=== PATIENT | female | born 1990 | race Two or more races ===

== ENCOUNTER 2020-06-08 14:34 | Emergency (ER) | payer OTHER ==
[~2020-06-08] VITALS: Ht 149.9 cm; Wt 59.0 kg
[2020-06-08] MEDS ORDERED: [UNRECOGNIZED DRUG - OTHER] (15:21)
[2020-06-08] MEDS ORDERED: CLONAZEPAM0.5 M1 (15:21)
== END 2020-06-08 15:54 | disposition home or self-care (01) ==
LOC: ER 14:34
DX: S51.851A Open bite of right forearm, initial encounter (principal); W54.0XXA Bitten by dog, initial encounter; Y93.89 Activity, other specified; Y92.89 Other specified places as the place of occurrence of the external cause; Y99.8 Other external cause status

== ENCOUNTER 2024-08-10 18:36 | Emergency (ER) | payer OTHER ==
[~2024-08-10] VITALS: Ht 149.9 cm; Wt 61.7 kg
[~2024-08-10 18:36] MED LIST: CLONAZEPAM0.5 M1; [UNRECOGNIZED DRUG - OTHER]
[2024-08-10] MEDS ORDERED: TRAZODONE HCL100 MG PO (19:02)
[2024-08-10] MEDS ORDERED: 0.9 % SODIUM CHLORIDE 1,000 ML IV STA (19:38)
[2024-08-10] MEDS ORDERED: ONDANSETRON HCL 2 MG/ML VIAL IV STA (19:39)
[2024-08-10 20:38] LABS: HEMATOCRIT 43.7 % (36.0-45.00); HEMOGLOBIN 14.9 g/dL (12.0-15.00); MEAN CELL VOLUME 86.3 fL (80.00-100.00); MEAN CORPUSCULAR HEMOGLOBIN 29.4 pg (27.00-32.0); MEAN CORPUSCULAR HGB CONC 34.1 g/dl (32.0-36.0); PLATELET COUNT 388 K/uL (150-450); RED BLOOD COUNT 5.06 M/uL (4.00-6.00); RED CELL DISTRIBUTION WIDTH 12.8 % (11.5-14.5)
[2024-08-10 21:20] LABS: CALCIUM 10.5 mg/dL (8.5-10.1); CREATININE SERUM 1.14 mg/dL (0.55-1.02); GFR 55.24; POTASSIUM 3.62 mEq/L (3.5-5.1)
== END 2024-08-10 23:54 | disposition home or self-care (01) ==
LOC: ER 18:36
PROVIDERS: Emergency Medicine
DX: K29.70 Gastritis, unspecified, without bleeding (principal); R11.10 Vomiting, unspecified; Z91.011 Allergy to milk products